=== PATIENT | female | born 1990 | race American Indian/Alaskan Native ===

== ENCOUNTER 2018-05-08 09:36 | Emergency (ER) | payer SELFPAY ==
[2018-05-08 09:48] VITALS: BP 150/81
--- NOTE | 2018-05-08 12:11 | Emergency Department Report ---
ED Chest Pain HPI - General Chief Complaint: Chest Pain Stated Complaint: CHEST PAIN/LEFT ARM PAIN/HEAD PAIN Time Seen by Provider: 05/08/18 11:49 Source: patient Mode of arrival: Ambulatory Limitations: No Limitations - History of Present Illness Initial Comments: 27-year-old female presents with complaints of chest pain. She reports chest pain is located in the left and mid chest. Patient states pain starts in the left upper arm and radiates to the chest. 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 MD Complaint: chest pain -: week(s) (1) Pain Location: substernal, left chest Pain Radiation: LUE Severity: mild Quality: aching Consistency: intermittent Improves With: rest Worsens With: other (use of left arm) re: dyspnea. denies: nausea, vomting Other Symptoms: cough Treatments Prior to Arrival: other (ibuprofen) - Related Data Previous Rx's Medication Instructions Recorded Last Taken Type Methocarbamol [Robaxin-750] 750 mg PO Q6HR PRN #20 tablet 05/08/18 Unknown Rx Naproxen [Naprosyn] 500 mg PO BID #20 tablet 05/08/18 Unknown Rx Allergies Allergy/AdvReac Type Severity Reaction Status Date / Time No Known Allergies Allergy Unverified 05/08/18 09:44 Heart Score - HEART Score History: Slightly suspicious EKG: Normal Age: < 45 Risk factors: No known risk factors Troponin: < normal limit HEART Score: 0 ED Review of Systems ROS: Stated complaint: CHEST PAIN/LEFT ARM PAIN/HEAD PAIN Other details as noted in HPI Comment: All other systems reviewed and negative Respiratory: cough, shortness of breath Cardiovascular: chest pain Musculoskeletal: myalgia, other (denies leg pain and swelling) ED Past Medical Hx - Past Medical History Previous Medical History?: No - Surgical History Past Surgical History?: No - Social History Smoking Status: Current Every Day Smoker Substance Use Type: None - Medications Home Medications: Home Medications Medication Instructions Recorded Confirmed Last Taken Type Methocarbamol [Robaxin-750] 750 mg PO Q6HR PRN #20 tablet 05/08/18 Unknown Rx Naproxen [Naprosyn] 500 mg PO BID #20 tablet 05/08/18 Unknown Rx ED Physical Exam - General Limitations: No Limitations General appearance: alert, in no apparent distress - Head Head exam: Present: atraumatic, normocephalic - Eye Eye exam: Present: normal appearance - ENT ENT exam: Present: mucous membranes moist - Neck Neck exam: Present: normal inspection - Respiratory Respiratory exam: Present: normal lung sounds bilaterally. Absent: respiratory distress - Cardiovascular Cardiovascular Exam: Present: regular rate, normal rhythm, other (left and center chest wall tenderness present) - GI/Abdominal GI/Abdominal exam: Present: soft. Absent: tenderness - Extremities Exam Extremities exam: Present: normal inspection, full ROM. Absent: calf tenderness - Neurological Exam Neurological exam: Present: alert, oriented X3, motor sensory deficit - Psychiatric Psychiatric exam: Present: normal affect, normal mood - Skin Skin exam: Present: warm, dry, intact, normal color ED Course Vital Signs 05/08/18 09:44 Temperature 98.7 F Pulse Rate 80 Respiratory 18 Rate Blood Pressure 150/81 O2 Sat by Pulse 98 Oximetry ED Medical Decision Making - EKG Data EKG shows normal: sinus rhythm, axis (nml), intervals (nml), QRS complexes (nml) , ST-T waves (nml) Rate: normal (86) - Medical Decision Making 27-year-old female with report of left upper arm pain radiating into the left and center chest. Patient reports pain intermittent times one week. 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 EKG is normal. Patient has chest wall tenderness on exam. Patient appears in no acute distress. We'll give prescription for anti-inflammatory and muscle relaxer. Advised patient to ice shoulder after her shifts. Will give outpatient follow-up - Differential Diagnosis chest wall pain, costochondritis, ACS Critical care attestation.: If time is entered above; I have spent that time in minutes in the direct care of this critically ill patient, excluding procedure time. ED Disposition Clinical Impression: Costochondritis Disposition: DC-01 TO HOME OR SELFCARE Is pt being admited?: No Condition: Stable Instructions: Costochondritis (ED) Referrals: [facility] [Provider Group] - 3-5 Days [facility] [Outside] - 3-5 Days Time of Disposition: 12:19
== END 2018-05-08 12:27 | disposition home or self-care (01) ==
LOC: ED 09:36
DX: M94.0 Chondrocostal junction syndrome [Tietze] (principal); F17.200 Nicotine dependence, unspecified, uncomplicated
CPT/HCPCS: 93005; 93010; 99282